=== PATIENT | female | born 1995 | race Two or more races ===

== ENCOUNTER 2019-04-25 11:34 | Emergency (ER) | payer OTHER ==
[~2019-04-25] VITALS: Ht 162.6 cm; Wt 59.0 kg
--- NOTE | 2019-04-25 12:03 | PHYS DOC ---
Past History Past Medical History: No Pertinent History Past Surgical History: No Surgical History Smoking: Non-smoker Alcohol Use: Occasionally Drug Use: None Adult General Chief Complaint Chief Complaint: VAGINAL BLEEDING HPI HPI Patient is a 24-year-old female presents with vaginal bleeding. She took a home test April 09, 2019 that was positive. Her last menstrual period was in January. She missed her menstrual cycle in February. She noted bleeding on her underwear when she woke up and had a second episode of bleeding approximately 11:00 this morning, just prior to arrival. No passing tissue or clots. No significant pain. No nausea or vomiting. No dysuria or hematuria. No fever. She is uncertain as to what her blood type is. She is 2 para 1001 and had no complications from her prior .[] Review of Systems Review of Systems Constitutional: Denies fever or chills [] Eyes: Denies change in visual acuity, redness, or eye pain [] HENT: Denies nasal congestion or sore throat [] Respiratory: Denies cough or shortness of breath [] Cardiovascular: No chest pain or palpitations[] GI: Denies abdominal pain, nausea, vomiting, bloody stools or diarrhea [] : Denies dysuria or hematuria, see history of present illness [] Musculoskeletal: Denies back pain or joint pain [] Integument: Denies rash or skin lesions [] Neurologic: Denies headache, focal weakness or sensory changes [] Endocrine: Denies polyuria or polydipsia [] All other systems were reviewed and found to be within normal limits, except as documented in this note. Allergies Allergies Allergies Coded Allergies Type Severity Reaction Last Updated Verified No Known Drug Allergies 04/25/19 No Physical Exam Physical Exam Constitutional: Well developed, well nourished, no acute distress, non-toxic appearance. [] HENT: Normocephalic, atraumatic, bilateral external ears normal, oropharynx moist, no oral exudates, nose normal. [] Eyes: PERRLA, EOMI, conjunctiva normal, no discharge. [] Neck: Normal range of motion, no tenderness, supple, no stridor. [] Cardiovascular:Heart rate regular rhythm, no murmur [] Lungs & Thorax: Bilateral breath sounds clear to auscultation [] Abdomen: Bowel sounds normal, soft, no tenderness, no masses, no pulsatile masses. Pelvic exam performed with pharmacology associate: External genitalia, Bancroft's, urethra, and Bartholin's glands: No rashes, no lesions. Vaginal vault: There is a mild to moderate amount of dark blood in the vault. No clotting noted. No lesions or tears are noted. Cervix: Scant blood from the cervix. No cervical motion tenderness. Cervix is closed. No clots are present.[] Skin: Warm, dry, no erythema, no rash. [] Back: No tenderness, no CVA tenderness. [] Extremities: No tenderness, no cyanosis, no clubbing, ROM intact, no edema. [] Neurologic: Alert and oriented X 3, normal motor function, normal sensory function, no focal deficits noted. [] Psychologic: Affect normal, judgement normal, mood normal. [] Current Patient Data Vital Signs Vital Signs Date Time Temp Pulse Resp B/P (MAP) Pulse Ox O2 Delivery O2 Flow Rate FiO2 04/25/19 11:52 98.1 88 20 97 EKG EKG [] Radiology/Procedures Radiology/Procedures PROCEDURE: OB <14 WKS W/TV First trimester obstetrical ultrasound with transabdominal and transvaginal imaging HISTORY: Vaginal bleeding Transabdominal ultrasound showed retroflexion of the uterus. There is an intrauterine gestation. There is no free fluid in the pelvis. Maternal ovaries were not identified. Transvaginal imaging was performed for further evaluation. There is an intrauterine gestation. [place]-rump length was 1.9 cm corresponding to 8 weeks 3 days gestational age. Gestational age by last menstrual period was 10 weeks 6 days. There is a normal oval gestational sac. A subchorionic hemorrhage was not identified. There is no heart beat identified with color Doppler or Doppler imaging. There is a small amount of fluid in the cervix. Maternal left ovary was identified measuring 2.6 x 1.3 x 1.9 cm. Maternal right ovary was identified measuring 3.1 x 1.5 x 1.6 cm. IMPRESSION: 1. Fetus and gestational sac identified in the uterus. 2. Fetus 8 weeks 3 days age by crown-rump length. 3. No heartbeat identified consistent with demise.[] Course & Med Decision Making Course & Med Decision Making Pertinent Labs and Imaging studies reviewed. (See chart for details) Emergency department course: Patient arrived, was placed in bed, and tolerated exam well. Pelvic exam was performed with pharmacology associate. She was transported to and from ultrasound with any complications. After the return of the ultrasound findings, these were discussed with the patient and family. Consultation was made with Dr. Elliott in [employer] Medical decision making: Patient with what appears to be demise. There is no evidence of Rh incompatibility given the patient is blood type A positive. No evidence of an ectopic .[] Dragon Disclaimer Dragon Disclaimer This electronic medical record was generated, in whole or in part, using a voice recognition dictation system. Departure Departure: Impression: Primary Impression: demise Disposition: HOME/RESIDENCE PRIOR TO ADM Condition: STABLE Referrals: PCP,NO (PCP) Patient Instructions: Threatened Miscarriage Additional Instructions: Follow-up with your regular doctor in 2 days. Follow-up with Dr. Elliott on Sunday, April 28, 2019. [facility] [address] [place] [address] Your quantitative level was 3925 today. This should double every 2-3 days any normal . It needs to be followed for this doubling or monitored until goes to 0. Return to the ER if worsening pain or any other concerns. Scripts Hydrocodone Bit/Acetaminophen (NORCO 5-325 TABLET) 1 Each Tablet 1 TAB PO Q4-6HRS for severe pain, #20 TAB Prov: RAMONA BASILIO DO 04/25/19 RAMONA BASILIO DO Apr 25, 2019 12:03
[2019-04-25] MEDS ORDERED: IV NORMAL SALINE 500ML 500 ML IV SCH (12:30)
[2019-04-25 12:55] LABS: BILIRUBIN,URINE NEG (NEG); CLARITY,URINE HAZY; COLOR,URINE YELLOW; GLUCOSE,URINE NEG (NEG); NITRITE,URINE NEG (NEG); UROBILINOGEN,URINE 1 mg/dL (0.2 mg/dL); WBC,URINE RARE /HPF (0-4)
[2019-04-25 12:56] LABS: AMORPHOUS SEDIMENT,UR PRESENT /HPF; BACTERIA,URINE FEW /HPF (0-FEW); SQUAMOUS EPITHELIAL CELL,UR FEW /LPF
[2019-04-25 13:06] LABS: BASO # 0.1 x10^3/uL (0.0-0.2); BASO % 1 % (0-3); EOS # 0.1 x10^3/uL (0.0-0.7); EOS % 1 % (0-3); HEMATOCRIT 39.6 % (36.0-47.0); HEMOGLOBIN 13.5 g/dL (12.0-15.5); LYMPH # 1.5 x10^3/uL (1.0-4.8); LYMPH % 15 % (24-48); MEAN CORPUSCULAR HEMOGLOBIN 31 pg (25-35); MEAN CORPUSCULAR HGB CONC 34 g/dL (31-37); MEAN CORPUSCULAR VOLUME 90 fL (79-100); MONO # 0.4 x10^3/uL (0.0-1.1); MONO % 4 % (0-9); NEUT # 7.8 x10^3uL (1.8-7.7); NEUT % 79 % (31-73); PLATELET COUNT 259 x10^3/uL (140-400); RED CELL DISTRIBUTION WIDTH 14.2 % (11.5-14.5)
[2019-04-25 13:16] LABS: ALBUMIN 3.6 g/dL (3.4-5.0); ALBUMIN/GLOBULIN RATIO 1.1 (1.0-1.7); CALCIUM 8.9 mg/dL (8.5-10.1); CREATININE 0.5 mg/dL (0.6-1.0); GFR 150.3; POTASSIUM 3.7 mmol/L (3.5-5.1); TOTAL BILIRUBIN 0.5 mg/dL (0.2-1.0)
--- NOTE | 2019-04-25 14:15 | RAD ---
First trimester obstetrical ultrasound with transabdominal and transvaginal imaging HISTORY: Vaginal bleeding Transabdominal ultrasound showed retroflexion of the uterus. There is an intrauterine gestation. There is no free fluid in the pelvis. Maternal ovaries were not identified. Transvaginal imaging was performed for further evaluation. There is an intrauterine gestation. [place]-rump length was 1.9 cm corresponding to 8 weeks 3 days gestational age. Gestational age by last menstrual period was 10 weeks 6 days. There is a normal oval gestational sac. A subchorionic hemorrhage was not identified. There is no heart beat identified with color Doppler or Doppler imaging. There is a small amount of fluid in the cervix. Maternal left ovary was identified measuring 2.6 x 1.3 x 1.9 cm. Maternal right ovary was identified measuring 3.1 x 1.5 x 1.6 cm. IMPRESSION: 1. Fetus and gestational sac identified in the uterus. 2. Fetus 8 weeks 3 days age by crown-rump length. 3. No heartbeat identified consistent with demise. . Electronically signed by: Wei Kurtz MD (04/25/2019 2:13 PM) [id number]
[2019-04-25] MEDS ORDERED: HYDR-3165 PO (14:37)
[2019-04-25 14:49] VITALS: BP 135/79
== END 2019-04-25 14:52 | disposition home or self-care (01) ==
LOC: ER 11:34
DX: O46.91 Antepartum hemorrhage, unspecified, first trimester (principal); Z3A.08 8 weeks gestation of pregnancy; O02.1 Missed abortion
CPT/HCPCS: 36415; 76801; 76817; 80053; 81001; 84702; 85025; 86900; 86901; 87491; 87591; 99285; J7040; Q0111

== ENCOUNTER → 2020-02-24 | Outpatient (CLI) | payer OTHER ==
[~2020-02-24] MED LIST: HYDR-3165 PO
--- NOTE | 2020-02-24 16:43 | RAD ---
EXAM: Obstetric sonogram. HISTORY: Size and dates assessment. TECHNIQUE: Sonographic imaging of a gravid uterus was performed. COMPARISON: None. FINDINGS: There is a single intrauterine fetus in cephalic presentation with a normal heart rate of 145 bpm. There is a three-vessel umbilical cord. There is a four-chamber heart. stomach, kidneys, bladder, brain, extremities are unremarkable. The facial profile and sacrum are not well seen due to presentation. The cervix is long and closed, measuring 3.5 cm. There is an anterior placenta without evidence of placenta previa. The amniotic fluid index is normal at 16.0 cm. The biparietal diameter is 4.6 cm, corresponding with 19 weeks and 6 days. The head circumference is 16.9 cm, corresponding with 19 weeks and 3 days. The abdominal circumference is 14.3 cm, corresponding with 19 weeks and 5 days. The femoral length is 3.2 cm, corresponding with 19 weeks and 6 days. The estimated gestational age patient combined ultrasound measurements is 19 weeks and 5 days and the estimated weight is 311 g. IMPRESSION: 1. Single intrauterine fetus with normal heart rate and gestational age based on ultrasound measurements of 19 weeks and 5 days. The estimated gestational age based on LMP is 19 weeks and 2 days. 2. Suboptimal evaluation of the facial profile and sacrum due to presentation. Short-term follow-up can be performed to confirm an otherwise unremarkable anatomy survey. Electronically signed by: Velia Pineda MD (02/24/2020 4:41 PM) [id number]
== END | disposition home or self-care (01) ==
LOC: US 13:53
PROVIDERS: ATTEND Obstetrics & Gynecology
DX: Z32.01 Encounter for pregnancy test, result positive (principal); O26.842 Uterine size-date discrepancy, second trimester; Z3A.19 19 weeks gestation of pregnancy
CPT/HCPCS: 76805

== ENCOUNTER → 2021-02-22 | Outpatient (CLI) | payer OTHER ==
[2021-02-22 17:20] LABS: BASO % 0 % (0-3); EOS # 0.1 x10^3/uL (0.0-0.7); EOS % 1 % (0-3); HEMATOCRIT 32.8 % (36.0-47.0); HEMOGLOBIN 11.5 g/dL (12.0-15.5); LYMPH # 1.6 x10^3/uL (1.0-4.8); LYMPH % 15 % (24-48); MEAN CORPUSCULAR HEMOGLOBIN 31 pg (25-35); MEAN CORPUSCULAR HGB CONC 35 g/dL (31-37); MEAN CORPUSCULAR VOLUME 89 fL (79-100); MONO # 0.4 x10^3/uL (0.0-1.1); MONO % 4 % (0-9); NEUT # 8.6 x10^3uL (1.8-7.7); NEUT % 80 % (31-73); PLATELET COUNT 249 x10^3/uL (140-400); RED BLOOD COUNT 3.68 x10^6/uL (3.50-5.40); RED CELL DISTRIBUTION WIDTH 14.4 % (11.5-14.5); WHITE BLOOD COUNT 10.7 x10^3/uL (4.0-11.0)
[2021-02-23 18:44] LABS: FREE T4 0.81 ng/dL (0.76-1.46); THYROID STIM HORMONE (TSH) 0.699 uIU/mL (0.358-3.740)
[2021-02-24 19:12] LABS: RUBELLA IGG ANTIBODY 1.87 index (Immune >0.99)
== END ==
LOC: LAB 15:16
PROVIDERS: ATTEND Obstetrics & Gynecology
DX: Z34.92 Encounter for supervision of normal pregnancy, unspecified, second trimester (principal)
CPT/HCPCS: 81220; 81511; 84439; 84443; 85025; 85660; 86592; 86703; 86762; 86787; 86803; 86850; 86900; 86901; 87340

== ENCOUNTER → 2021-03-03 | Outpatient (CLI) | payer OTHER ==
--- NOTE | 2021-03-03 13:54 | RAD ---
EXAM: OB ULTRASOUND, > 14 WEEKS HISTORY: Anatomy survey. COMPARISON: None. TECHNIQUE: Multiple grayscale images, color Doppler, and M-mode images of the uterus are obtained. FINDINGS: There is a single intrauterine gestation in breech presentation. The placenta is anterior in location without evidence of placenta previa. The amount of amniotic fluid appears appropriate. Amniotic flu id index is 11.3 cm. Cervical length is 4.9 cm. Biometrical data: BPD = 3.8 cm for 17 weeks 4 days. HC = 14.35 cm for 17 weeks 4 days. AC = 12.43 cm for 18 weeks 0 days. FL = 2.5 a cm for 17 weeks 6 days. HC/AC ratio = 1.15. Overall, the estimated sonographic gestational age is 17 weeks and 5 days for an estimated date of de livery of 08/06/2021. The estimated date of delivery provided by the last menstrual period is 2. Estimated weight is 215 grams. A 4 chamber heart is identified with positive cardiac activity. The estimated heart rate is 140 beats per minute. Bilateral upper and lower extremities are identified. There is a three-vessel cord with cord insertion visualized. stomach and urinary bladder are identified. Both kidneys are seen. The spine and brain are unremarkable. No obvious anatomic abnormalities are identified. The maternal adnexal regions are unremarkable. IMPRESSION: 1. Single intrauterine fetus with normal heart rate and gestational age based on ultrasound measureme nts of 17 weeks and 5 days. 2. Unremarkable anatomy survey. Electronically signed by: Velia Pineda MD (03/03/2021 1:51 PM) [id number]
== END ==
LOC: US 12:17
PROVIDERS: ATTEND Obstetrics & Gynecology
DX: Z34.92 Encounter for supervision of normal pregnancy, unspecified, second trimester (principal); Z3A.17 17 weeks gestation of pregnancy
CPT/HCPCS: 76805

== ENCOUNTER → 2021-03-29 | Outpatient (CLI) | payer OTHER ==
--- NOTE | 2021-03-29 13:20 | RAD ---
EXAM: Ultrasound US OB LIMITED 03/29/2021 9:33 AM INDICATION: High risk , EFW. COMPARISON: OB ultrasound 03/03/2021 FINDINGS: There is a single living intrauterine gestation in cephalic position. heart rate is [address] acenta is anterior. The cervix measures 3.8 cm. The following anatomy was visualized: brain, cerebellum, four-chamber heart, stomach, kid neys, bladder, three-vessel cord. biometry: Biparietal diameter: 5.1 cm, 21 weeks 3 days Head circumference: 19.1 cm, 21 weeks 3 days Abdominal circumference: 17.2 cm, 22 weeks 1 day Femur length: 3.6 cm, 21 weeks 3 days HC/AC ratio: 1.1 SUE: 15.0 Estimated gestational age by ultrasound: 21 weeks 4 days. Estimated weight: 449 g, 31st percent ile. IMPRESSION: Single living intrauterine with gestational age by ultrasound 21 weeks 4 days. Estimated weight 449g, 31st percentile. Electronically signed by: Clarisa Story MD (03/29/2021 1:17 PM) [id number]
== END ==
LOC: US 09:29
PROVIDERS: ATTEND Obstetrics & Gynecology
DX: O09.72 Supervision of high risk pregnancy due to social problems, second trimester (principal); Z3A.21 21 weeks gestation of pregnancy
CPT/HCPCS: 76815

== ENCOUNTER → 2021-05-23 | Outpatient (CLI) | payer OTHER ==
[2021-05-23 11:43] LABS: BASO % 0 % (0-3); EOS # 0.1 x10^3/uL (0.0-0.7); EOS % 1 % (0-3); HEMATOCRIT 31.2 % (36.0-47.0); HEMOGLOBIN 10.9 g/dL (12.0-15.5); LYMPH # 1.6 x10^3/uL (1.0-4.8); LYMPH % 13 % (24-48); MEAN CORPUSCULAR HEMOGLOBIN 32 pg (25-35); MEAN CORPUSCULAR HGB CONC 35 g/dL (31-37); MEAN CORPUSCULAR VOLUME 92 fL (79-100); MONO # 0.5 x10^3/uL (0.0-1.1); MONO % 4 % (0-9); NEUT % 82 % (31-73); PLATELET COUNT 212 x10^3/uL (140-400); RED BLOOD COUNT 3.38 x10^6/uL (3.50-5.40); WHITE BLOOD COUNT 12.3 x10^3/uL (4.0-11.0)
== END ==
LOC: LAB 09:47
PROVIDERS: ATTEND Obstetrics & Gynecology
DX: Z34.93 Encounter for supervision of normal pregnancy, unspecified, third trimester (principal)
CPT/HCPCS: 36415; 82950; 85025